=== PATIENT | female | born 1965 | race Two or more races ===

== ENCOUNTER → 2022-07-25 | Day surgery (SDC) | payer BC ==
[~2022-07-25] MED LIST: NORTRIPTYLINE H50 MG PO; RIZATRIPTAN10 MG PO; TOPIRAMATE25 MG PO; ZYRTEC10 MG PO
== END | disposition home or self-care (01) ==
LOC: OR 07:43
DX: D50.9 Iron deficiency anemia, unspecified (principal); K64.8 Other hemorrhoids; K64.4 Residual hemorrhoidal skin tags; K29.50 Unspecified chronic gastritis without bleeding
CPT/HCPCS: J2704; J7040